=== PATIENT | male | born 1965 | race Caucasian/White ===

== ENCOUNTER 2019-02-01 17:37 | Emergency (ER) | payer MEDICAID ==
[~2019-02-01] VITALS: Ht 180.3 cm; Wt 95.5 kg
[2019-02-01] MEDS ORDERED: LORazepam 2 mg/ml vial IV ONE (18:00)
[2019-02-01] MEDS ORDERED: normal saline 1000ML IV soln IV ONE (18:00)
[2019-02-01 18:29] LABS: BASOPHILS # (AUTO) 0.1 X10'3 (0-0.2); BASOPHILS % (AUTO) 0.7 % (0-1); EOSINOPHILS # (AUTO) 0.1 X10'3 (0-0.9); EOSINOPHILS % (AUTO) 0.6 % (0-6); HEMATOCRIT 41.4 % (42.0-52.0); HEMOGLOBIN 14.3 g/dl (14.0-17.9); LYMPHOCYTES # (AUTO) 2.1 X10'3 (1.1-4.8); MEAN CORPUSCULAR HEMOGLOBIN 32.5 PG (27.0-31.0); MEAN CORPUSCULAR HGB CONC 34.5 g/dL (33.0-36.5); MEAN CORPUSCULAR VOLUME 94.3 FL (78-98); MEAN PLATELET VOLUME 7.8 FL (7.4-10.4); MONOCYTES # (AUTO) 0.9 X10'3 (0-0.9); MONOCYTES % (AUTO) 8.8 % (2-12); NEUTROPHILS # (AUTO) 6.7 X10'3 (1.8-7.7); NEUTROPHILS % (AUTO) 68.9 % (42-75); PLATELET COUNT 258 X10'3 (140-440); RED BLOOD COUNT 4.39 X10'6 (4.70-6.10); WHITE BLOOD COUNT 9.8 X10'3 (4.5-11.0)
[2019-02-01 18:44] LABS: ALANINE AMINOTRANSFERASE 48 U/L (12-78); ALBUMIN 4.1 G/DL (3.4-5.0); ALBUMIN/GLOBULIN RATIO 1.2 (1.1-1.5); ALKALINE PHOSPHATASE 63 IU/L (46-116); ANION GAP 13 (8-16); ASPARTATE AMINO TRANSFERASE 24 U/L (10-37); BILIRUBIN,TOTAL 1.1 MG/DL (0.1-1.0); BLOOD UREA NITROGEN 19 MG/DL (7-18); BUN/CREATININE RATIO 18.8 (5.4-32.0); CALCIUM 9.5 MG/DL (8.5-10.1); CHLORIDE 107 MMOL/L (99-107); CREATININE 1.01 MG/DL (0.60-1.10); GLUCOSE 99 MG/DL (70-104); POTASSIUM 3.4 MMOL/L (3.5-5.1); SODIUM 142 MMOL/L (135-145); TOTAL CARBON DIOXIDE 21.7 MMOL/L (24-32); TOTAL PROTEIN 7.5 G/DL (6.4-8.2); eGFR 78 ML/MIN
[2019-02-01 18:51] LABS: CREATINE KINASE 303 U/L (39-308)
--- NOTE | 2019-02-01 19:09 | NUR ---
PATIENT REPORTS DOING "3 EIGHT BALLS OF METH IN 3 DAYS" SMOKING IT AND STARTED HALLUCINATING AT HOME: SEEING [facility] AND [facility], PATIENT NEVER HAD SI OR HI AND DENIES IT AND HE IS NOT NOW HALLUCINATING. HE IS NOT DELUSIONAL
[2019-02-01] MEDS ORDERED: ketorolac trometh. 30mg/ml inj. IV ONE (19:15)
[2019-02-01 20:00] VITALS: BP 111/83
--- NOTE | 2019-02-01 20:04 | NUR ---
PT CONTINUES WITH 7 OUT OF 10 PAIN TO HIS NECK. THE PAIN IS CHRONIC BUT EXACERBATED CURRENTLY AND HE REPORTS PROBABLY FROM LAYING ON HIS BACK THE PAST FEW DAYS. AT BEDSIDE. CURRENT VSS.
== END 2019-02-01 20:15 | disposition home or self-care (01) ==
LOC: ER 17:40
DX: F15.251 Other stimulant dependence with stimulant-induced psychotic disorder with hallucinations (principal); R07.89 Other chest pain
CPT/HCPCS: 36415; 71045; 80053; 82550; 83880; 84484; 85025; 93005; 96374; 96375; 99284; J1885; J2060; J7030

== ENCOUNTER 2019-07-12 21:08 | Emergency (ER) | payer MEDICAID ==
[~2019-07-12] VITALS: Ht 180.3 cm; Wt 96.3 kg
[2019-07-12] MEDS ORDERED: LORazepam 2 mg/ml vial IV ONE (21:15)
[2019-07-12] MEDS ORDERED: diphenhydrAMINE 50 mg/ml inj IV ONE (21:15)
[2019-07-12] MEDS ORDERED: normal saline 1000ML IV soln IVB ONE (21:15)
[2019-07-12 21:36] LABS: BASOPHILS # (AUTO) 0.1 X10'3 (0-0.2); BASOPHILS % (AUTO) 0.8 % (0-1); EOSINOPHILS # (AUTO) 0.2 X10'3 (0-0.9); HEMATOCRIT 42.7 % (42.0-52.0); HEMOGLOBIN 14.6 g/dl (14.0-17.9); LYMPHOCYTES # (AUTO) 2.6 X10'3 (1.1-4.8); LYMPHOCYTES % (AUTO) 29.9 % (21-51); MEAN CORPUSCULAR HEMOGLOBIN 31.9 PG (27.0-31.0); MEAN CORPUSCULAR HGB CONC 34.1 g/dL (33.0-36.5); MEAN CORPUSCULAR VOLUME 93.5 FL (78-98); MEAN PLATELET VOLUME 8.1 FL (7.4-10.4); MONOCYTES # (AUTO) 0.9 X10'3 (0-0.9); MONOCYTES % (AUTO) 10.4 % (2-12); NEUTROPHILS % (AUTO) 56.9 % (42-75); PLATELET COUNT 218 X10'3 (140-440); RED BLOOD COUNT 4.57 X10'6 (4.70-6.10); RED CELL DISTRIBUTION WIDTH 12.8 % (11.5-14.5); WHITE BLOOD COUNT 8.8 X10'3 (4.5-11.0)
[2019-07-12 21:49] LABS: ALANINE AMINOTRANSFERASE 45 U/L (12-78); ALBUMIN 4.1 G/DL (3.4-5.0); ALBUMIN/GLOBULIN RATIO 1.3 (1.1-1.5); ALKALINE PHOSPHATASE 57 IU/L (46-116); ANION GAP 12 (8-16); ASPARTATE AMINO TRANSFERASE 25 U/L (10-37); BILIRUBIN,TOTAL 0.7 MG/DL (0.1-1.0); BLOOD UREA NITROGEN 26 MG/DL (7-18); BUN/CREATININE RATIO 24.5 (5.4-32.0); CALCIUM 8.8 MG/DL (8.5-10.1); CHLORIDE 102 MMOL/L (99-107); CREATININE 1.06 MG/DL (0.60-1.10); GLUCOSE 274 MG/DL (70-104); SODIUM 138 MMOL/L (135-145); TOTAL CARBON DIOXIDE 24.2 MMOL/L (24-32); TOTAL PROTEIN 7.3 G/DL (6.4-8.2); eGFR 73 ML/MIN
--- NOTE | 2019-07-12 22:15 | NUR ---
Patient resting comfortably on gurney. Denies any hallucinations at this time.
--- NOTE | 2019-07-12 23:15 | NUR ---
Patient being changed into green scrubs and personal belongings sent to locker. Was resting comfortably on gurney
[2019-07-12 23:18] LABS: CLARITY,URINE CLEAR (Clear); COLOR,URINE YELLOW (Yellow); GLUCOSE, URINE >=1000 mg/dl (Neg); KETONES,URINE TRACE mg/dl (Neg); LEUKOCYTE ESTERASE ,URINE NEGATIVE (Neg); NITRITES, URINE NEGATIVE (Neg); OCCULT BLOOD,URINE SMALL (Neg); PH,URINE 5.5 (4.8-8.0); PROTEIN,URINE 30 mg/dl (Neg); UROBILINOGEN,URINE 0.2 E.U/dL (0.2-1.0)
[2019-07-12 23:23] LABS: UA COLLECTION TYPE CLN CATCH MIDSTREAM
[2019-07-12 23:26] LABS: BACTERIA,URINE NONE SEEN /HPF (Neg); MUCUS STRANDS MANY /LPF (Neg); RBC,URINE NONE SEEN /HPF (0-2); SQUAMOUS EPITHELIAL CELL,UR FEW /LPF (FEW); WBC,URINE 0-4 /HPF (0-4)
--- NOTE | 2019-07-12 23:43 | NUR ---
Patient moved from main ER to bed 26. Patient has a normal gait. He is oriented to person, place and time. Patient reportibly consumed meth in large quanities at home. Patient reported to have been paranoid in the pre-hospital care setting. Patient had voided, all labs have been completed. The patient states a Type 2 diabetic history, he states he held a partial dose of his metformin because he had not eaten. The patient states he was afraid the metformin might drop his blood sugar. This patient does not express any concern about doing large amounts of street meth. The patients thought process is linear at this time, his decision making is extremely poor. The patient denies any S/I, H/I, hallucinations, or paranoia at this time. The patient was placed on bed 26 in ER overflow, changed into green scrubs. The patient is oriented to the unit. He is given warm blankets and he lays down to sleep. Patient is in direct view from the nursing station.
[2019-07-13] MEDS ORDERED: LISI-600 PO (00:06)
[2019-07-13] MEDS ORDERED: CYCL-394 PO (00:08)
[2019-07-13] MEDS ORDERED: GABA-532 PO (00:09)
[2019-07-13] MEDS ORDERED: MELO-102 PO (00:11)
[2019-07-13] MEDS ORDERED: METF-438 PO (00:14)
[2019-07-13] MEDS ORDERED: ATOR40TA71 PO (00:17)
--- NOTE | 2019-07-13 01:47 | NUR ---
Patient is sleeping quietly, low fowlers position in bed.
--- NOTE | 2019-07-13 01:49 | NUR ---
Patient is sleeping quietly, low fowlers position in bed.
--- NOTE | 2019-07-13 02:30 | NUR ---
Patient is sleeping quietly on his left side.
--- NOTE | 2019-07-13 03:23 | NUR ---
Patient is sleeping quietly.
--- NOTE | 2019-07-13 04:43 | NUR ---
Patient is sleeping on his left side.
--- NOTE | 2019-07-13 05:40 | NUR ---
pt packet faxed to [facility]
--- NOTE | 2019-07-13 06:16 | NUR ---
asleep no signs of resp distress
--- NOTE | 2019-07-13 07:09 | NUR ---
sleeping on back
[2019-07-13 07:46] LABS: URINE AMPHETAMINE SCREEN POSITIVE (Neg); URINE BARBITUATE SCREEN NEGATIVE (Neg); URINE BENZODIAZEPINES SCREEN POSITIVE (Neg); URINE CANNABINOID SCREEN POSITIVE (Neg); URINE COCAINE SCREEN NEGATIVE (Neg); URINE METHADONE SCREEN NEGATIVE (Neg); URINE OPIATE SCREEN NEGATIVE (Neg); URINE PHENCYCLIDINE SCREEN NEGATIVE (Neg)
[2019-07-13] MEDS ORDERED: metFORMIN 500mg tablet PO SCH (08:00)
[2019-07-13] MEDS ORDERED: gabapentin 300mg capsule PO SCH (08:00)
[2019-07-13] MEDS ORDERED: atorvastatin 20mg tablet PO SCH (08:00)
[2019-07-13] MEDS ORDERED: cyclobenzaprine 10mg tablet PO SCH (08:00)
[2019-07-13] MEDS ORDERED: lisinopril 10 MG tablet PO SCH (08:00)
--- NOTE | 2019-07-13 09:20 | NUR ---
[facility]
[2019-07-13 09:32] VITALS: BP 101/75
== END 2019-07-13 09:51 | disposition home or self-care (01) ==
LOC: ER 21:09
DX: F29 Unspecified psychosis not due to a substance or known physiological condition (principal); F15.90 Other stimulant use, unspecified, uncomplicated; Z79.899 Other long term (current) drug therapy
CPT/HCPCS: 36415; 71045; 80053; 80305; 81001; 85025; 93005; 96374; 96375; 99285; J1200; J2060; J7030